=== PATIENT | female | born 1945 | race Hispanic/Latino ===

== ENCOUNTER 2019-01-24 01:20 | Emergency (ER) | payer MEDICARE ==
[~2019-01-24] VITALS: Ht 157.5 cm; Wt 72.6 kg
--- OUTSIDE RECORDS SUMMARY | 2019-01-24 01:22 | XMS REPORT | Continuity of Care Document ---
Author Author [facility] Interface Address Unknown Phone Unavailable Problems Problem Status Onset Date Classification Date Reported Comments Source Encounter for screening mammogram for malignant neoplasm of breast 10/19/2017 01/23/2018 [facility] [place] Z12.31 - ENCNTR SCREEN MAMMOGRAM FOR MA Active 10/16/2017 [facility] [place] Medications Medication Details Route Status Patient Instructions Ordering Provider Order Date Source Allergies, Adverse Reactions, Alerts Substance Category Reaction Severity Reaction type Status Date Reported Comments Source No Known Medication Allergies Assertion Drug allergy [facility] [place] Immunizations Immunization Date Given Site Status Last Updated Comments Source Results Order Name Results Value Reference Range Date Interpretation Comments Source Breast Mammo Scrn [place] incl CAD [place] Breast Mammo Scrn [place]ILD[place] incl CAD PR BILATERAL DIGITAL SCREENING MAMMOGRAM WITH CAD: 12/06/2018 CLINICAL: Encounter For Screening Mammogram For Malignant Neoplasm Of Breast/Z12.31. Current study was evaluated with a Computer Aided Detection (CAD) system. COMPARISON:Comparison is made to exams dated: 10/16/2017 mammogram - [facility], 10/02/2016 mammogram, 05/09/2015 mammogram, and 03/17/2014 mammogram - [facility]. TECHNIQUE: Mammographic views were obtained using digital acquisition. Current study was also evaluated with a Computer Aided Detection (CAD) system. FINDINGS: There are scattered fibroglandular densities in both breasts. There are benign calcifications in both breasts. No significant masses, calcifications, or other findings are seen in either breast. There has been no significant interval change. IMPRESSION: BENIGN RECOMMENDATION:There is no mammographic evidence of malignancy. A 1 year screening mammogram is recommended.(12/07/2019) This exam was interpreted at [id number] at [facility]. Professional services are provided by the [facility]. Sofi Gomez M.D. to/penrad:12/06/2018 13:01:30 Rodeo Clown(s): RT Rain(R)(M), [facility] letter sent: BI-RADS 1/2 Mammogram BI-RADS: 2 Benign 12/06/2018 - - Read by: Sofi Gomez MD Dictated Date/time: 12/06/18 13:01 Electronically Signed by: Sofi Gomez MD 12/06/18 13:01 FINAL REPORT W[facility] Breast Mammo Scrn GILDARDO incl CAD MA Breast Mammo Scrn [place]ILDARDO incl CAD MA BILATERAL DIGITAL SCREENING MAMMOGRAM WITH CAD: 10/16/2017 CLINICAL: /Z12.31 Encounter For Screening Mammogram For Malignant Neoplasm Of Breast. Current study was evaluated with a Computer Aided Detection (CAD) system. COMPARISON:Comparison is made to exams dated: 03/17/2014 mammogram, 03/16/2013 mammogram - [facility], 02/05/2012 mammogram, 01/14/2011 mammogram, and 11/19/2010 mammogram - [facility]. TECHNIQUE: Mammographic views were obtained using digital acquisition. Current study was also evaluated with a Computer Aided Detection (CAD) system. FINDINGS: There are scattered fibroglandular densities in both breasts. There are benign calcifications in both breasts. No significant masses, calcifications, or other findings are seen in either breast. There has been no significant interval change. IMPRESSION: BENIGN RECOMMENDATION:There is no mammographic evidence of malignancy. A 1 year screening mammogram is recommended.(10/17/2018) This exam was interpreted at [id number] for WEND[facility] Colindres. Professional services are provided by the [facility]. Kasia Grover M.D. ms/penadonis:10/18/2017 13:03:10 Rodeo Clown(s): Melisa Tejada, RT(R)(M), [facility] letter sent: BI-RADS 1/2 Mammogram BI-RADS: 2 Benign 10/16/2017 - - Read by: Kasia Grover MD Dictated Date/time: 10/18/17 13:03 Electronically Signed by: Kasia Grover MD 10/18/17 13:03 FINAL REPORT [facility] [place] Digital Mammo Screening [facility] MA Digital Mammo Screening [place] MA - DIGITAL MAMMO SCREENING [place]ILD[place] MA BILATERAL DIGITAL SCREENING MAMMOGRAM WITH CAD: 03/17/2014 CLINICAL: V76.10 Breast Screening, Unspecified. Current study was evaluated with a Computer Aided Detection (CAD) system. Comparison is made to exams dated: 11/19/2010 mammogram, 02/05/2012 mammogram - [facility] and 03/16/2013 mammogram - [facility]. There are scattered fibroglandular densities in both breasts. No significant masses, calcifications, or other findings are seen in either breast. There has been no significant interval change. IMPRESSION: NEGATIVE There is no mammographic evidence of malignancy. A screening mammogram in one year is recommended. Dr. Mayo Sparrow M.D. eoc/penrad:03/26/2014 08:55:01 Rodeo Clown: Melisa Botello RT(R)(M), [facility] This exam was dictated and interpreted by [id number] for Jens. letter sent: Normal exam Mammogram BI-RADS: 1 Negative 03/17/2014 - - Read by: Mayo Sparrow MD Dictated Date/time: 03/26/14 08:55 Electronically Signed by: Mayo Sparrow MD 03/26/14 08:55 FINAL REPORT [facility] [place] Digital Mammo Screening [place] MA Digital Mammo Screening [place] MA - DIGITAL MAMMO SCREENING [place]ILD[place] MA BILATERAL DIGITAL SCREENING MAMMOGRAM WITH CAD: 03/16/2013 CLINICAL: Routine. Current study was evaluated with a Computer Aided Detection (CAD) system. Comparison is made to exam dated: 11/19/2010 mammogram - [facility]. There are scattered fibroglandular elements in both breasts that could obscure a lesion on mammography. No significant masses, calcifications, or other findings are seen in either breast. There has been no significant interval change. IMPRESSION: NEGATIVE There is no mammographic evidence of malignancy. A screening mammogram in one year is recommended. Dr. Mayo Sparrow M.D. eoc/penrad:03/17/2013 08:12:41 Rodeo Clown: Jasmyn Renee RT(R)(M), [facility] letter sent: Normal exam Mammogram BI-RADS: 1 Negative 03/16/2013 - - Read by: Mayo Sparrow Dictated Date/time: 03/17/13 08:12 Electronically Signed by: Mayo Sparrow MD 03/17/13 08:12 FINAL REPORT RAPHAEL Colindres Bone Density-Dual Energy Absorptionmetry Bone Density-Dual Energy Absorptionmetry - Bone Density-Dual Energy Absorptionmetry BONE DENSITY EVALUATION: 03/16/2013 CLINICAL DATA: Post menopausal, clinical risk for osteoporosis and follow-up to previous study. COMPARISON: 09/02/2009 Right hip using Lunar Dual Energy X-Ray Absorptiometry from [facility] with reported medium fracture risk, BMD of 0.735g/cm2, T-score of -2.20, Z-score of -1.00 and 85.0% age-match bone mineralization. 09/02/2009 Left hip using Lunar Dual Energy X-Ray Absorptiometry from [facility] with reported medium fracture risk, BMD of 0.746g/cm2, T-score of -2.10, Z-score of -0.90 and 86.0% age-match bone mineralization. 09/02/2009 AP L1-L4 region of spine using Lunar Dual Energy X-Ray Absorptiometry from [facility] with reported medium fracture risk, BMD of 0.967g/cm2, T-score of -1.80, Z-score of -0.30 and 97.0% age-match bone mineralization. FINDINGS: Bone density evaluation was performed 03/16/2013 on the AP L1-L4 region of spine using Lunar Dual Energy X-Ray Absorptiometry. The BMD average for the exam is 0.959 g/cm2. The T-score is -1.80 and the Z-score is -0.30. These values indicate 96.0% for age-matched controls. Since the previous similar exam of 09/02/2009, there has been a -0.008 or -0.8% change in the BMD value which represents no significant interval change in bone density. This matches the World Health Organization's criteria for osteopenia and places the patient at a medium risk for fracture. An additional bone density evaluation was performed 03/16/2013 on the right femur neck using Lunar Dual Energy X-Ray Absorptiometry. The BMD average for the exam is 0.765 g/cm2. The T-score is -2.00 and the Z-score is -0.40. These values indicate 93.0% for age-matched controls. This matches the World Health Organization's criteria for osteopenia and places the patient at a medium risk for fracture. An additional bone density evaluation was performed 03/16/2013 on the right hip using Lunar Dual Energy X-Ray Absorptiometry. The BMD average for the exam is 0.758 g/cm2. The T-score is -2.00 and the Z-score is -0.70. These values indicate 90.0% for age-matched controls. Since the previous similar exam of 09/02/2009, there has been a +0.023 or +3.1% change in the BMD value which represents no significant interval change in bone density. This matches the World Health Organization's criteria for osteopenia and places the patient at a medium risk for fracture. An additional bone density evaluation was performed 03/16/2013 on the left femur neck using Lunar Dual Energy X-Ray Absorptiometry. The BMD average for the exam is 0.727 g/cm2. The T-score is -2.20 and the Z-score is -0.70. These values indicate 89.0% for age-matched controls. This matches the World Health Organization's criteria for osteopenia and places the patient at a medium risk for fracture. An additional bone density evaluation was performed 03/16/2013 on the left hip using Lunar Dual Energy X-Ray Absorptiometry. The BMD average for the exam is 0.764 g/cm2. The T-score is -1.90 and the Z-score is -0.60. These values indicate 91.0% for age-matched controls. Since the previous similar exam of 09/02/2009, there has been a +0.018 or +2.4% change in the BMD value which represents no significant interval change in bone density. This matches the World Health Organization's criteria for osteopenia and places the patient at a medium risk for fracture. IMPRESSION: OSTEOPENIA Patient is at medium risk for fracture. Compared to BMD of prior exam, there has been no significant change in bone density. Gagan ortiz/collette:03/16/2013 16:34:29 Rodeo Clown: Kallie Hernandez [facility] 03/16/2013 - - Read by: Gagan De La O Dictated Date/time: 03/16/13 16:34 Electronically Signed by: Gagan De La O MD 03/16/13 16:34 FINAL REPORT R[facility]HA[facility] Vital Signs Vital Sign Value Date Comments Source Encounters Location Location Details Encounter Type Encounter Number Reason For Visit Attending Provider ADM Date DC Date Status Source [facility] [place] [facility] [id number] Joyce Gardner 03/17/2014 03/18/[address] [facility] [place] [facility] [id number] Joyce Gardner 10/16/2017 10/17/[address] [facility] [place] [facility] [id number] Andreina Sexton 12/06/2018 12/07/2018 [facility] [place] Procedures Procedure Code Date Perfomer Comments Source
--- OUTSIDE RECORDS SUMMARY | 2019-01-24 01:22 | XMS REPORT | CCD ---
Author Author Auto Generated Organization [facility] Outpatient Imaging - [place] Address Unknown Phone Unavailable Care Team Providers Care Animal Husbandry Technician Name Role Phone Deion Amador CP Allergies, Adverse Reactions, Alerts Substance Reaction Status NKDA Active
--- OUTSIDE RECORDS SUMMARY | 2019-01-24 01:22 | XMS REPORT | Summary of Care ---
Author Author [facility] Out[facility] - [place] [facility] Organization [facility] Out[facility] - [facility] Address Unknown Phone Unavailable Encounter HQ Kenneth_arslan([facility]) [id number] Date(s): 12/06/18 - 12/06/18 [facility] Out[facility] - [facility] [address] [place] [address] [phone] Discharge Disposition: Home or Self Care Attending Physician: Andreina Sexton NP Referring Physician: Andreina Sexton NP Vital Signs No data available for this section Problem List No data available for this section Allergies, Adverse Reactions, Alerts No Known Medication Allergies Medications No data available for this section Results No data available for this section Immunizations No data available for this section Procedures No data available for this section Social History No data available for this section Assessment and Plan No data available for this section
--- OUTSIDE RECORDS SUMMARY | 2019-01-24 01:22 | XMS REPORT | Summary of Care ---
Author Author [facility] Outpatient [facility] - [place] Organization [facility] [place] Address Unknown Phone Unavailable Encounter HQ Kenneth_arslan([facility]) [id number] Date(s): 10/16/17 - 10/16/17 [facility] [place] [address] [place], [place] [address] [phone] Encounter Diagnosis Encounter for screening mammogram for malignant neoplasm of breast (Final) - 10/18/17 Discharge Disposition: Home or Self Care Attending Physician: Joyce Gardner MD Vital Signs No data available for this section Problem List No data available for this section Allergies, Adverse Reactions, Alerts Substance Reaction Severity Status NKDA Active Medications No data available for this section Results No data available for this section Immunizations No data available for this section Procedures No data available for this section Social History No data available for this section Assessment and Plan No data available for this section
--- OUTSIDE RECORDS SUMMARY | 2019-01-24 01:22 | XMS REPORT | Summary of Care ---
Author Organization Unknown Address Unknown Phone Unavailable Encounter HQ [email or web address]([facility]) [id number] Date(s): 03/17/14 - 03/17/14 [facility] Outpatient Imaging - [address] [address] [place] Discharge Disposition: Home Physician Attending: Joyce Gardner MD Reason for Visit V76.12 - SCREEN MAMMOGRA Problem List No data available for this section Allergies, Adverse Reactions, Alerts Substance Reaction Severity Status NKDA Active Medications No data available for this section Medications Administered During Your Visit No data available for this section Immunizations No data available for this section
--- OUTSIDE RECORDS SUMMARY | 2019-01-24 01:22 | XMS REPORT | CCD ---
Author Author Auto Generated Organization [facility] Outpatient [facility] Address Unknown Phone Unavailable Care Team Providers Care Templer Head Name Role Phone Deion Amador CP Allergies, Adverse Reactions, Alerts Substance Reaction Status NKDA Active
[2019-01-24] MEDS ORDERED: HYDRALAZINE HCL 25 MG TAB PO ONE (01:30)
--- NOTE | 2019-01-24 01:54 | Diagnostic Imaging Report ---
EXAMINATION: CHEST 2 VIEWS INDICATION: ^cough ^[id number] ^[id number] ^Y COMPARISON: None FINDINGS: PA and lateral views TUBES and LINES: None. LUNGS: Lungs are well inflated. Mildly increased right lower lung field hazy opacification. PLEURA: No pleural effusion or pneumothorax. HEART AND MEDIASTINUM: The cardiomediastinal silhouette is unremarkable. BONES AND SOFT TISSUES: Age indeterminate for thoracic spine (likely T11) vertebral body anterior wedging. Soft tissues are unremarkable. UPPER ABDOMEN: No free air under the diaphragm. IMPRESSION: Mildly increased right lower lung field hazy opacification, representing atelectasis and/or developing pneumonia. Signed by: Dr. Ramiro Arevalo MD on 01/24/2019 1:51 AM
[2019-01-24] MEDS ORDERED: HYDRALAZINE HCL 10 MG TAB PO ONE (03:30)
[2019-01-24 04:01] VITALS: BP 180/72
== END 2019-01-24 04:10 | disposition home or self-care (01) ==
LOC: ER 01:20
DX: R05 Cough (principal); J15.9 Unspecified bacterial pneumonia; I10 Essential (primary) hypertension
CPT/HCPCS: 71046; 93005; 99283

== ENCOUNTER 2020-08-10 13:52 | Emergency (ER) | payer MEDICARE ==
[~2020-08-10] VITALS: Ht 157.5 cm; Wt 72.6 kg
== END 2020-08-10 14:40 | disposition home or self-care (01) ==
LOC: ER 14:22
DX: U07.1 COVID-19 (principal); R50.9 Fever, unspecified; R06.00 Dyspnea, unspecified; R53.83 Other fatigue; R53.81 Other malaise; I10 Essential (primary) hypertension; E11.9 Type 2 diabetes mellitus without complications; E78.5 Hyperlipidemia, unspecified; K21.9 Gastro-esophageal reflux disease without esophagitis; Z86.73 Personal history of transient ischemic attack (TIA), and cerebral infarction without residual deficits
CPT/HCPCS: 99282